=== PATIENT | male | born 1975 | race American Indian/Alaskan Native ===

== ENCOUNTER 2018-06-24 22:38 | Emergency (ER) | payer MEDICAID ==
[2018-06-24 23:05] VITALS: BP 134/80; PULSE 85; RESP 20; TEMP 98.4; O2SAT 96
[2018-06-24] MEDS ORDERED: Dexamethasone 4 mg/1 ml IM STA (23:39)
--- NOTE | 2018-06-25 00:01 | C.PDOC ---
History Of Present Illness 43 year old male presents to the ER with a complaint of right shoulder pain for the past 5 days that radiates to the right hand. He has been taking motrin with some relief. Denies heavy lifting, recent fall, chest pain, SOB, weakness, numbness, nausea, or vomiting. Time Seen by Provider: 06/24/18 23:08 Chief Complaint (Nursing): Upper Extremity Problem/Injury History Per: Patient History/Exam Limitations: no limitations Onset/Duration Of Symptoms: Days Current Symptoms Are (Timing): Still Present Exacerbating Factor(s): Strenuous Use Of Affected Area Recent travel outside of the [place]: No Past Medical History Reviewed: Historical Data, Nursing Documentation, Vital Signs Vital Signs: Last Vital Signs Temp 98.4 F 06/24/18 22:57 Pulse 85 06/24/18 22:57 Resp 20 06/24/18 22:57 BP 134/80 06/24/18 22:57 Pulse Ox 96 06/25/18 00:20 Family History: States: Unknown Family Hx - Social History Hx Alcohol Use: Yes Hx Substance Use: No - Immunization History Hx Tetanus Toxoid Vaccination: No Hx Influenza Vaccination: No Hx Pneumococcal Vaccination: No Review Of Systems Cardiovascular: Negative for: Chest Pain Respiratory: Negative for: Shortness of Breath Gastrointestinal: Negative for: Nausea, Vomiting Musculoskeletal: Positive for: Shoulder Pain Neurological: Negative for: Weakness, Numbness Physical Exam - Physical Exam Appears: Non-toxic Skin: Normal Color, Warm, Dry, No Rash Head: Atraumatic, Normacephalic Eye(s): bilateral: Normal Inspection Oral Mucosa: Moist Neck: Normal ROM, No Midline Cervical Tenderness, No Paracervical Tenderness, Supple Extremity: Capillary Refill (<2 seconds), No Swelling, Other (Tenderness with external and internal rotation) Pulses: Left Radial: Normal, Right Radial: Normal, Left Dorsalis Pedis: Normal, Right Dorsalis Pedis: Normal Neurological/Psych: Oriented x3, Normal Speech, Normal Motor, Normal Sensation Gait: Steady ED Course And Treatment O2 Sat by Pulse Oximetry: 96 (Room air) Pulse Ox Interpretation: Normal - Other Rad Right shoulder x-ray X-Ray: Interpreted by Me, Viewed By Me Interpretation: No acute fractures or dislocations. Medical Decision Making Medical Decision Making: Right shoulder x-ray ordered, results were negative. Decadron and toradol administered. On reevaluation, patient is resting comfortably in the ER in no acute distress, vitals are stable, will discharge home with Rx and instructions to follow up with PMD. Disposition - Disposition Referrals: [facility] [Outside] Romario Sheehan III, MD [Staff Provider] - Buck Veliz MD [Staff Provider] - Disposition: HOME/ ROUTINE Disposition Time: 00:15 Condition: GOOD Additional Instructions: Follow up with the medical doctor within 1-2 days. Return if worsened. Prescriptions: Naproxen [Naprosyn] 500 mg PO BID #20 tab predniSONE [Prednisone] 10 mg PO BID #10 tab Instructions: Tendonitis Forms: [facility] (German) - Clinical Impression Clinical Impression: Shoulder tendonitis - PA / FI[employer] SUPER[employer]OR / Resident Statement MD/DO has reviewed & agrees with the documentation as recorded. - Scribe Statement The provider has reviewed the documentation as recorded by the Scribe Aj Guzman All medical record entries made by the Scribe were at my direction and personally dictated by me. I have reviewed the chart and agree that the record accurately reflects my personal performance of the history, physical exam, medical decision making, and the department course for this patient. I have also personally directed, reviewed, and agree with the discharge instructions and disposition.
--- NOTE | 2018-06-25 08:56 | RAD ---
Date of service: 06/24/2018 PROCEDURE: Radiographs of the Right Shoulder HISTORY: Shoulder pain COMPARISON: No prior. FINDINGS: BONES: Bone alignment and mineralization are normal. There is no acute displaced fracture or bone destruction. JOINTS: Normal. Glenohumeral and acromioclavicular joints preserved. SOFT TISSUES: Normal. OTHER FINDINGS: None. IMPRESSION: No acute fracture or dislocation.
== END 2018-06-25 00:25 | disposition home or self-care (01) ==
LOC: C.ER 22:38
DX: M75.91 Shoulder lesion, unspecified, right shoulder (principal)
CPT/HCPCS: 73030; 96372; 99283; J1100; J1885